=== PATIENT | female | born 1980 | race Hispanic/Latino ===

== ENCOUNTER 2017-11-02 00:44 | Emergency (ER) | payer OTHER ==
[2017-11-02 02:23] LABS: Urine Blood NEGATIVE (NEG); Urine Glucose NEGATIVE (NEG); Urine Protein NEGATIVE (NEG); Urine Specific Gravity 1.025 (1.005-1.030); Urine pH 6.5 (5.0-7.0)
[2017-11-02 02:42] LABS: Absolute Lymphocytes (CBC) 2.9 K/uL (0.7-4.9); Absolute Monocytes 0.9 K/uL (0.1-1.3); Absolute Neutrophil 7.4 K/uL (1.8-8.0); Basophils % 0.5 % (0-1.3); Eosinophils % 1.4 % (0-4.4); Hematocrit 36.2 % (36.0-45.0); Lymphocytes % 25.8 % (15.3-44.8); MCH 31.8 pg (27.0-35.0); MCV 94.1 fL (80-100); MPV 9.6 fL (7.6-11.3); Monocytes % 7.7 % (3.3-12.3); RBC Red Blood Cell Count 3.84 M/uL (3.86-4.86)
[2017-11-02 02:45] LABS: BUN Blood Urea Nitrogen 10 mg/dL (6-20); Bicarbonate 24 mEq/L (21-31); Glucose Level 90 mg/dL (65-120); Potassium 3.6 mEq/L (3.6-5.0); Sodium Level 136 mEq/L (135-145)
--- NOTE | 2017-11-02 03:12 | EDPHYS ---
Physician Documentation [facility] Name: Catrachita Fisher Age: 37 yrs Sex: Female : 1980 Arrival Date: 11/02/2017 Time: 00:55 Bed 20 Private MD: ED Physician Chaitanya Westbrook HPI: 11/02 01:59 This 37 yrs old Female presents to ER via Ambulatory with complaints of rn Vaginal Bleeding, + Preg <12wks. 01:59 The patient presents to the emergency department with vaginal bleeding, that is light, rn with no clots. The estimated gestational age is 9 weeks. course: care: none, Leakage of Fluid: none appreciated, Ultrasound: the patient has not had an ultrasound. Associated signs and symptoms: Pertinent negatives: abdominal pain, chest pain, diarrhea, dysuria, fever, ruptured membranes. The patient has experienced a previous episode. Reports 8th , has had 1 miscarriage, denies trauma, last sex a few days ago, reports spotting, mild cramps but no true abd pain, and cramps went away, no urinary symptoms. . 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 - Social history:: Smoking status: Patient/guardian denies using tobacco, Patient/guardian denies using alcohol, street drugs. - Family history:: not pertinent. - Hospitalizations: : No recent hospitalization is reported. ROS: 02:01 Constitutional: Negative for fever, chills, and weight loss, Eyes: Negative for injury, rn pain, redness, and discharge, Neck: Negative for injury, pain, and swelling, Cardiovascular: Negative for chest pain, palpitations, and edema, Respiratory: Negative for shortness of breath, cough, wheezing, and pleuritic chest pain, Abdomen/GI: Negative for abdominal pain, nausea, vomiting, diarrhea, and constipation, Back: Negative for injury and pain, : + vaginal spotting MS/Extremity: Negative for injury and deformity, Skin: Negative for injury, rash, and discoloration, Neuro: Negative for headache, weakness, numbness, tingling, and seizure. Exam: 02:01 Constitutional: This is a well developed, well nourished patient who is awake, alert, rn and in no acute distress. Head/Face: Normocephalic, atraumatic. Eyes: Pupils equal round and reactive to light, extra-ocular motions intact. Lids and lashes normal. Conjunctiva and sclera are non-icteric and not injected. Cornea within normal limits. Periorbital areas with no swelling, redness, or edema. Abdomen/GI: Soft, non-tender, with normal bowel sounds. No distension or tympany. No guarding or rebound. No evidence of tenderness throughout. Back: No spinal tenderness. No costovertebral tenderness. Full range of motion. Skin: Warm, dry with normal turgor. Normal color with no rashes, no lesions, and no evidence of cellulitis. MS/ Extremity: Pulses equal, no cyanosis. Neurovascular intact. Full, normal range of motion. Equal circumference. Neuro: Awake and alert, GCS 15, oriented to person, place, time, and situation. Cranial nerves II-XII grossly intact. Motor strength 5/5 in all extremities. Sensory grossly intact. Cerebellar exam normal. Normal gait. Vital Signs: 01:12 BP 112 / 75; Pulse 66; Resp 18; Temp 98.4; Pulse Ox 98% on R/A; Weight 58.97 kg (R); ao Height 5 ft. 1 in. (154.94 cm) (R); Pain 5/10; 02:17 BP 135 / 85; Pulse 71; Resp 20; Pulse Ox 97% ; Pain 6/10; ao 03:17 BP 124 / 71; Pulse 67; Resp 15; Pulse Ox 98% on R/A; Pain 0/10; bs1 01:12 Body Mass Index 24.56 (58.97 kg, 154.94 cm) ao Procedures: 02:31 Ultrasound: Type: OB, performed by the emergency department physician, Bedside rn transabdominal u/s performed at bedside, + single IUP, posterior placenta, good fluid, FHT 162, images shown to patient, efe [place] present. . MDM: 01:53 Patient medically screened. rn 03:10 Differential diagnosis: Differential diagnosis: ectopic . Data reviewed: vital rn signs, nurses notes. Data reviewed: lab test result(s), radiologic studies, ultrasound, and as a result, I will discharge patient. Counseling: I had a detailed discussion with the patient and/or guardian regarding: the historical points, exam findings, and any diagnostic results supporting the discharge/admit diagnosis, lab results, radiology results, the need for outpatient follow up, to return to the emergency department if symptoms worsen or persist or if there are any questions or concerns that arise at home. Special discussion: I discussed with the patient/guardian in detail that at this point there is no indication for admission to the hospital. It is understood, however, that if the symptoms persist or worsen the patient needs to return immediately for re-evaluation. Based on the history and exam findings, there is no indication for further emergent testing or inpatient evaluation. I discussed with the patient/guardian the need to see the OB Gyne specialist for further evaluation of the symptoms. ED course: +single IUP with normal FHT, RH+, will dc home with OB f/u. . 11/02 01:54 Order name: Quantitative Hcg; Complete Time: 03:19 rn 11/02 01:54 Order name: Abo/rh Typing; Complete Time: 03:09 rn 11/02 01:54 Order name: Basic Metabolic Panel; Complete Time: 03:19 rn 11/02 01:54 Order name: CBC with Diff; Complete Time: 03:09 rn 11/02 02:10 Order name: Urine Dipstick--Ancillary (enter results); Complete Time: 03:09 em1 11/02 02:10 Order name: Urine --Ancillary (enter results); Complete Time: 03:09 1 11/02 01:54 Order name: Urine Test (obtain specimen); Complete Time: 02:07 rn 11/02 01:54 Order name: IV Saline Lock; Complete Time: 02:35 rn 11/02 01:54 Order name: Labs collected and sent; Complete Time: 02:35 rn 11/02 01:54 Order name: NPO; Complete Time: 02:07 rn 11/02 01:54 Order name: Urine Dipstick-Ancillary (obtain specimen); Complete Time: 02:07 rn Administered Medications: No medications were administered Disposition: 11/02/17 03:11 Discharged to Home. Impression: Threatened . - Condition is Stable. - Discharge Instructions: Threatened Miscarriage. - Medication Reconciliation Form, Thank You Letter, Antibiotic Education, Prescription Opioid Use form. - Follow up: Private Physician; When: As needed; Reason: Recheck today's complaints, Re-evaluation by your physician. - Problem is new. - Symptoms have improved. Signatures: Dispatcher [employer] EDChaitanya Choe MD MD rn Ortiz, Trey, RN RN ao Carla Byrne RN RN bs1
--- NOTE | 2017-11-02 03:12 | ER ---
Nurse's Notes [facility] Name: Catrachita Fisher Age: 37 yrs Sex: Female : 1980 Arrival Date: 11/02/2017 Time: 00:55 Bed 20 Private MD: Diagnosis: Threatened Presentation: 11/02 01:08 Presenting complaint: Patient states: "I'm about 9 week and started having ao vaginal bleeding about an hour ago. I think it was more like spotting when I clean my self in the bathroom. I'm also having cramps.". Transition of care: patient was not received from another setting of care. Onset of symptoms was November 02, 2017 at 00:30. Care prior to arrival: None. 01:08 Method Of Arrival: Ambulatory ao 01:08 Acuity: DERRICK 3 ao Triage Assessment: 01:15 General: Appears in no apparent distress. comfortable, Behavior is calm, cooperative, ao appropriate for age. Pain: Complains of pain in abdomen Pain currently is 5 out of 10 on a pain scale. 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 - Social history:: Smoking status: Patient/guardian denies using tobacco, Patient/guardian denies using alcohol, street drugs. - Family history:: not pertinent. - Hospitalizations: : No recent hospitalization is reported. Screenin:06 Abuse screen: Denies threats or abuse. Denies injuries from another. Nutritional ao screening: No deficits noted. Tuberculosis screening: No symptoms or risk factors identified. Fall Risk None identified. Assessment: 02:04 General: Appears. General: Appears in no apparent distress. comfortable, Behavior is ao appropriate for age. Pain: Complains of pain in abdomen Pain currently is 6 out of 10 on a pain scale. Neuro: Level of Consciousness is awake, alert, obeys commands, Oriented to person, place, time, situation, Moves all extremities. Speech is normal, Facial symmetry appears normal. Cardiovascular: Heart tones Capillary refill < 3 seconds Patient's skin is warm and dry. Respiratory: Airway is patent Respiratory effort is even, unlabored, Respiratory pattern is regular, symmetrical. GI: Abdomen is distended, Parent/caregiver reports the patient having Abdominal cramping. : Reports vaginal bleeding that is spotty. EENT: No signs and/or symptoms were reported regarding the EENT system. Derm: No signs and/or symptoms reported regarding the dermatologic system. Musculoskeletal: No signs and/or symptoms reported regarding the musculoskeletal system. 03:00 Reassessment: Patient appears in no apparent distress at this time. Patient and/or bs1 family updated on plan of care and expected duration. Pain level reassessed. Patient is alert, oriented x 3, equal unlabored respirations, skin warm/dry/pink. Vital Signs: 01:12 BP 112 / 75; Pulse 66; Resp 18; Temp 98.4; Pulse Ox 98% on R/A; Weight 58.97 kg (R); ao Height 5 ft. 1 in. (154.94 cm) (R); Pain 5/10; 02:17 BP 135 / 85; Pulse 71; Resp 20; Pulse Ox 97% ; Pain 6/10; ao 03:17 BP 124 / 71; Pulse 67; Resp 15; Pulse Ox 98% on R/A; Pain 0/10; bs1 01:12 Body Mass Index 24.56 (58.97 kg, 154.94 cm) ao ED Course: 00:55 Patient arrived in ED. es 01:11 Triage completed. ao 01:15 Arm band placed on right wrist. Patient placed in waiting room, in a wheelchair, ao Patient notified of wait time. 01:53 Chaitanya Westbrook MD is Attending Physician. rn 02:04 Trey Chua RN is Primary Nurse. ao 02:06 Patient has correct armband on for positive identification. Pulse ox on. NIBP on. ao 02:15 Inserted saline lock: 20 gauge in right antecubital area, using aseptic technique. bp Blood collected. 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 bp 03:24 IV discontinued, bleeding controlled, No redness/swelling at site. Pressure dressing bs1 applied. Administered Medications: No medications were administered Outcome: 03:11 Discharge ordered by . rn 03:24 Discharged to home ambulatory. bs1 03:24 Condition: stable 03:24 Discharge instructions given to patient, Instructed on discharge instructions, follow up and referral plans. Demonstrated understanding of instructions, follow-up care. 03:26 Patient left the ED. bs1 Signatures: Belia Marrero Roman, MD MD rn Ortiz, Alex RN RN William Watts RN RN Carla Florian RN RN bs1
[2017-11-02 03:32] VITALS: TEMP 98.4
[2017-11-02 03:34] VITALS: BP 124/71; O2SAT 98
== END 2017-11-02 03:26 | disposition home or self-care (01) ==
LOC: ER 00:44
DX: O20.0 Threatened abortion (principal); Z3A.09 9 weeks gestation of pregnancy; Z88.3 Allergy status to other anti-infective agents
CPT/HCPCS: 36415; 80048; 81003; 81025; 84702; 85025; 86900; 86901; 99283

== ENCOUNTER 2018-05-31 13:00 | Inpatient (IN) | payer OTHER ==
[2018-05-31] MEDS ORDERED: METHYLERGONOVINE 0.2MG/ML AMP IM PRN ×2 (15:05→20:37)
[2018-05-31] MEDS ORDERED: PROMETHAZINE 25 MG/ML VIAL IM PRN (15:05)
[2018-05-31] MEDS ORDERED: MEPERIDINE HCL 25 MG/0.5 ML IV PRN (15:05)
[2018-05-31] MEDS ORDERED: CARBOPROST TROME 250 MCG/ML IM PRN ×2 (15:05→20:37)
[2018-05-31] MEDS ORDERED: Ringers Lactate 1,000 ML IV PRN (15:05)
[2018-05-31] MEDS ORDERED: BUTORPHANOL 1 MG/ML INJ IV PRN (15:05)
[2018-05-31 15:15] VITALS: BMI 27.3
[2018-05-31 15:37] LABS: RPR Titer ND
[2018-05-31 15:52] LABS: Absolute Lymphocytes (CBC) 1.7 K/uL (0.7-4.9); Absolute Monocytes 0.8 K/uL (0.1-1.3); Absolute Neutrophil 11.5 K/uL (1.8-8.0); Basophils % 0.2 % (0-1.3); Eosinophils % 0.4 % (0-4.4); Hematocrit 37.3 % (36.0-45.0); Lymphocytes % 12.2 % (15.3-44.8); MCH 31.7 pg (27.0-35.0); MCV 93.5 fL (80-100); Monocytes % 5.7 % (3.3-12.3); RBC Red Blood Cell Count 3.99 M/uL (3.86-4.86); Urine Appearance CLEAR; Urine Bilirubin NEGATIVE (NEG); Urine Blood NEGATIVE (NEG); Urine Color DK YELLOW; Urine Glucose NEGATIVE (NEG); Urine Protein TRACE (NEG); Urine Specific Gravity 1.025 (1.005-1.030)
[2018-05-31] MEDS ORDERED: PENICILLIN G POT 5 MU/100 ML BAG IV ONE (16:00)
[2018-05-31] MEDS ORDERED: OXYTOCIN/LR 20 UNIT/1,000 ML BAG IV SCH ×2 (16:00→21:00)
[2018-05-31] MEDS ORDERED: Ringers Lactate 1,000 ML IV SCH (16:00)
[2018-05-31 16:04] LABS: Urine Microscopic Reflex ORDER UMIC
[2018-05-31 16:36] LABS: Urine Bacteria <20 /HPF (<20); Urine Culture Reflex Order REFLEXED; Urine Mucus 2+ /HPF (NONE SEEN); Urine RBC <5 /HPF (NONE SEEN)
[2018-05-31] MEDS ORDERED: PENICILLIN 2.5 MU in NA CHLORIDE 0.9% 100 ML IV SCH (17:00)
[2018-05-31] MEDS ORDERED: ROPIVACAINE HCL 100 ML IV PRN (17:47)
[2018-05-31] MEDS ORDERED: ROPIVACAINE HCL 0.2% 20ML AMP IV SCH (18:00)
[2018-05-31] MEDS ORDERED: FENTANYL CITR 100 MCG/2 ML IV ONE (19:00)
[2018-05-31] MEDS ORDERED: ACETAMINOPHEN 500 MG TAB PO PRN (20:37)
[2018-05-31] MEDS ORDERED: MEASLES,MUMPS,RUBELLA VAC 0.5ML SUBQ ONE (20:37)
[2018-05-31] MEDS ORDERED: Oxycodone HCl/Acetaminophen 1 TAB TAB PO PRN (20:37)
[2018-05-31] MEDS ORDERED: IBUPROFEN 200 MG TAB PO PRN (20:37)
--- NOTE | 2018-05-31 21:34 | PN ---
Xavi regularly now. She is still 2.5, 50% effaced, vertex, well applied, -1 station. FHTs no rmal, reactive. Rupture of membranes, clear fluid. She has had her first dose of penicillin. She i s Rh positive. Nonimmune to Rubella. Positive beta strep screen. Full labor talk given. Once she gets into good active labor, we will be requesting epidural anesthesia, which we will probably call f or when she approaches 4 cm and the baby comes down a little bit lower. Full labor discussion. ANDREA/GEO Voice ID: [id number] Report ID: [id number]
[2018-05-31 22:21] LABS: RPR (Rapid Plasma Reagin) NON-REACT (NON-REACT)
--- NOTE | 2018-06-01 00:34 | PN ---
The patient is now 8 cm, 100% effaced, vertex, +1 station. She is maged regularly. She is com fortable with her epidural. We will increase the Pitocin and anticipate full dilation, and then we w ill begin pushing relatively soon. ANDREA/GEO Voice ID: [id number] Report ID: [id number]
--- NOTE | 2018-06-01 04:43 | OP ---
Surgeon: Devendra Riggins MD Hospital Course: A 38-year-old, 8, para 6, AB 1, 39 weeks 5 days, scheduled for induction to guerin. Came in in early labor. Penicillin prophylaxis x2 times during the labor. Rh positive. No nimmune to Rubella. This has been discussed and she will be immunized during her . Tdap an d flu shots have been offered. Rupture of membranes at 3 cm, clear fluid. Epidural anesthesia estab lished at 7 cm gave good results during remainder of labor and delivery. Second stage of 25 minutes approximately. Spontaneous vaginal delivery of an estimated 7 pounds male infant. Nuchal cord x1. Apgars 9 and 9. No episiotomy. No laceration. Schultze delivery of the placenta, inspected and not ed to be intact and normal. Less than 200 cc blood loss. Tolerated all procedures well. Final Diagnoses: Term intrauterine , 39 weeks 5 days. Epidural anesthesia. Penicillin pro phylaxis. Rubella immunization pending. Nuchal cord x1. JACKIEC/DARIUSL Voice ID: [id number] Report ID: [id number]
[2018-06-01] MEDS: Oxycodone HCl/Acetaminophen 1 TAB TAB PO PRN ×3 (05:31→21:25)
--- NOTE | 2018-06-01 09:52 | PREOPHP ---
Date of Admission: 05/31/2018 Hospital Course: A 28-year-old multiparous female, 8 at least 5 term pregnancies, scheduled for induction tomorrow. She is 39 weeks and 5 days. Today, history of beta strep positive rather, rh positive, immune to Rubella. Xavi every 2-9 minutes, home she but she states they are unco mfortable. She is a good 2-1/2 now, she is 1.5 in the office, 60% effaced, vertex, well applied at - 1 station. She expressed a desire to stay tonight. We will go ahead and start her IV, start penicil karo prophylaxis. Start Pitocin and deliver her sometime later this evening. Labor talk given. ANDREA/GEO Voice ID: [id number]
[2018-06-01] MEDS ORDERED: MEASLES,MUMPS,RUBELLA VAC 0.5ML SQVAC ONE (17:00)
[2018-06-01 22:54] VITALS: BP 115/72; TEMP 97.6
--- NOTE | 2018-06-02 04:11 | DS ---
Date of Discharge: 06/01/2018 Hospital Course: Catrachita Fisher is 38-year-old, 8, para 6, AB 1, 39 weeks 5 days, scheduled f or induction today, came in last night in labor. Subsequently, delivered uneventfully of a 7-pound-e stimated-weight male . Apgars 9 and 9. No episiotomy. No laceration. Dennis delivery of th e placenta, was inspected and noted to be intact and normal. Less than 200 cc blood loss. Epidural anesthesia. Penicillin prophylaxis x2 during the labor. Nuchal cord loosely x1. Rh positive. [place] mmune to Rubella. This has been discussed with the patient. She will get her rubella immunization b efore she leaves. She has had her Tdap immunization. Encouraged to get a flu shot. Full dismissal instructions given. To report any temperature elevation of 100 degrees or greater, severe pain, heav y bleeding, or any other type of abnormalities. To call my office and see me back in 6 weeks for fol lowup. Given tramadol for analgesia, although she knows this goes to the breast milk. She may elect to take Motrin instead. Has some mild back discomfort from the epidural, but otherwise is doing wel l. Lochia is normal. She will be dismissed later this afternoon or tomorrow morning. Final Diagnoses: Term intrauterine , 39 weeks 5 days, vaginal delivery, epidural anesthesia . Penicillin prophylaxis. Loose nuchal cord x1. Rubella immunization offered. ANDREA/GEO Voice ID: [id number] Report ID: [id number]
[2018-06-02 13:01] LABS: HBsAG Nonreactive (Nonreactive)
== END 2018-06-01 22:20 | disposition home or self-care (01) | DRG 807 ==
LOC: L&D 13:00 → 2ND-WC 14:58
PROVIDERS: ADMIT Specialist; ATTEND Specialist
PROC: 10907ZC Drainage of Amniotic Fluid, Therapeutic from Products of Conception, Via Natural or Artificial Opening (ICD-10-PCS; principal; 2018-05-31)
PROC: 10E0XZZ Delivery of Products of Conception, External Approach (ICD-10-PCS; 2018-05-31)
DX: O69.81X0 Labor and delivery complicated by cord around neck, without compression, not applicable or unspecified (principal); Z37.0 Single live birth; O99.824 Streptococcus B carrier state complicating childbirth; Z3A.39 39 weeks gestation of pregnancy; Z23 Encounter for immunization
CPT/HCPCS: 36415; 81003; 81015; 85025; 86592; 86901; 87086; 87088; 87340; 90707; 99218; J0595; J2175; J2210; J2550; J2590; J2795; J3010

== ENCOUNTER 2020-01-13 16:10 | Emergency (ER) | payer OTHER, SELFPAY ==
--- NOTE | 2020-01-13 19:00 | RAD REPORT ---
EXAM DESCRIPTION: RAD - Chest Single View - 01/13/2020 5:57 pm CLINICAL HISTORY: PAIN COMPARISON: Portable September 2016 TECHNIQUE: AP portable chest image was obtained 01/13/2020 5:57 pm . FINDINGS: Lungs are clear. Heart and vasculature are normal. No measurable pleural effusion and no p neumothorax. No acute bony abnormality seen. No acute aortic findings suspected. No significant thayer e from comparison. IMPRESSION: No acute cardiopulmonary process.
--- NOTE | 2020-01-13 19:00 | ER ---
Nurse's Notes [facility] Name: Catrachita Fisher Age: 39 yrs Sex: Female : 1980 Arrival Date: 01/13/2020 Time: 16:12 Bed 13 Private MD: Diagnosis: Strain of muscle, fascia and tendon at neck level-left;Strain of muscle and tendon of back wall of thorax-left;Pain in left shoulder Presentation: 01/12 16:46 Chief complaint: Patient states: left shoulder pain X 3 weeks, does not remember iw injuring it, also has neck pain on left side radiating from shoulder blade, feels like pulling into her left fingers. Coronavirus screen: Proceed with normal triage. Patient denies a cough. Patient denies shortness of breath or difficulty breathing. Patient denies measured and/or subjective temperature greater than 100.4F prior to today's visit. Patient denies travel on a cruise ship or to a country the [facility] currently lists as an affected area. Patient denies contact with known and/or suspected case of COVID-19. Ebola Screen: Patient negative for fever greater than or equal to 101.5 degrees Fahrenheit, and additional compatible Ebola Virus Disease symptoms Patient denies exposure to infectious person. Patient denies travel to an Ebola-affected area in the 21 days before illness onset. No symptoms or risks identified at this time. Initial Sepsis Screen: Does the patient meet any 2 criteria? No. Patient's initial sepsis screen is negative. Does the patient have a suspected source of infection? No. Patient's initial sepsis screen is negative. Risk Assessment: Do you want to hurt yourself or someone else? Patient reports no desire to harm self or others. Onset of symptoms was December 24, 2019. 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 - Social history:: Smoking status: Patient denies any tobacco usage or history of. Screenin:36 Abuse screen: Denies threats or abuse. Denies injuries from another. Nutritional ls4 screening: No deficits noted. Tuberculosis screening: No symptoms or risk factors identified. Fall Risk None identified. Vital Signs: 16:46 BP 119 / 77; Pulse 69; Resp 16; Temp 97.9; Pulse Ox 96% on R/A; Weight 61.23 kg; Height 5 ft. 1 in. (154.94 cm); Pain 8/10; 18:04 BP 125 / 84; Pulse 83; Resp 18; Temp 98.1; Pulse Ox 96% on R/A; Weight 61.23 kg; Height 4 5 ft. 1 in. (154.94 cm); 18:04 Body Mass Index 25.51 (61.23 kg, 154.94 cm) 4 ED Course: 16:12 Patient arrived in ED. as 16:48 Triage completed. iw 16:48 Arm band placed on. iw 17:18 Mitchell Wakefield PA is PHCP. cp 17:18 Mitchell Patel MD is Attending Physician. cp 17:35 Angeli Marcano, RN is Primary Nurse. ls4 17:36 Patient has correct armband on for positive identification. Bed in low position. Call ls4 light in reach. Side rails up X 1. Pulse ox on. NIBP on. Verbal reassurance given. 17:36 No provider procedures requiring assistance completed. ls4 17:57 XRAY Shoulder LEFT 2 view In Process Unspecified. EDMS 17:57 XRAY Chest (1 view) In Process Unspecified. EDMS Administered Medications: 18:36 Drug: TORadol 30 mg Route: IM; Site: left deltoid; ls4 Outcome: 18:59 Discharge ordered by . cp 19:46 Patient left the ED. ls4 Signatures: Dispatcher [employer] EDMS Daniela Grimaldo Irene, RN RN Mitchell Wakefield PA PA Angeli Persaud, RN RN 4 [facility]
--- NOTE | 2020-01-13 19:01 | EDPHYS ---
Physician Documentation [facility] Name: Catrachita Fisher Age: 39 yrs Sex: Female : 1980 Arrival Date: 01/13/2020 Time: 16:12 Bed 13 Private MD: PAT Physician Mitchell Patel HPI: 01/12 17:55 This 39 yrs old Female presents to ER via Ambulatory with complaints of cp Shoulder Pain, Neck Pain, <24hrs Old. 17:55 The patient or guardian complains of pain, that is acute. left shoulder. Context: cp resulted from an unknown reason, The patient reports no decreased range of motion. The patient reports no obvious deformity. Onset: The symptoms/episode began/occurred 3 week(s) ago. Modifying factors: The symptoms are aggravated by lifting weight, movement. Associated signs and symptoms: Pertinent positives: neck pain, left upper back pain, Pertinent negatives: chest pain, Numbness in left arm. 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 - Social history:: Smoking status: Patient denies any tobacco usage or history of. ROS: 18:00 Constitutional: Negative for fever, poor PO intake. cp 18:00 Cardiovascular: Negative for chest pain, palpitations. cp 18:00 Respiratory: Negative for cough, shortness of breath, wheezing. 18:00 Abdomen/GI: Negative for abdominal pain, nausea, vomiting, and diarrhea. 18:00 Back: Positive for pain at rest, pain with movement, of the left trapezius, left cp scapular area and left subscapular area. 18:00 MS/extremity: Positive for pain, tenderness, of the left shoulder. cp 18:00 Skin: Negative for rash. 18:00 Neuro: Negative for headache, numbness, tingling, weakness. 18:00 All other systems are negative. Exam: 18:10 Constitutional: The patient appears in no acute distress, alert, awake, non-toxic, well cp developed, well nourished. 18:10 Head/Face: Normocephalic, atraumatic. cp 18:10 Neck: External neck: tenderness, that is mild, of the left mid cervical area, left trapezius and left side of neck, ROM/movement: pain, that is mild, with any movement, limited range of motion, is not appreciated, nuchal rigidity, is not appreciated. 18:10 Chest/axilla: Inspection: normal, Palpation: is normal, no crepitus, no tenderness. 18:10 Cardiovascular: Rate: normal, Rhythm: regular, Heart sounds: murmur, not appreciated. 18:10 Respiratory: the patient does not display signs of respiratory distress, Respirations: normal, no use of accessory muscles, no retractions, labored breathing, is not present, Breath sounds: are clear throughout, no decreased breath sounds, no stridor, no wheezing. 18:10 Back: pain, that is mild, of the left trapezius and left scapular area, ROM is painful, with all movement. 18:10 Musculoskeletal/extremity: Extremities: grossly normal except: noted in the left shoulder: pain, tenderness, There is no evidence of decreased ROM, deformity, ROM: limited passive range of motion due to pain, in the left shoulder, Pulses: noted to be 2+ in the right radial artery and left radial artery, Sensation intact. 18:10 Neuro: Orientation: to person, place \T\ time. Mentation: is normal, Motor: moves all fours, strength is normal, Sensation: no obvious gross deficits. Vital Signs: 16:46 BP 119 / 77; Pulse 69; Resp 16; Temp 97.9; Pulse Ox 96% on R/A; Weight 61.23 kg; Height iw 5 ft. 1 in. (154.94 cm); Pain 8/10; 18:04 BP 125 / 84; Pulse 83; Resp 18; Temp 98.1; Pulse Ox 96% on R/A; Weight 61.23 kg; Height dh4 5 ft. 1 in. (154.94 cm); 18:04 Body Mass Index 25.51 (61.23 kg, 154.94 cm) dh4 MDM: 17:19 Patient medically screened. ignacio 18:00 Differential diagnosis: tendonitis, strain, muscle spasm. cp 18:33 ED course: xrays of left shoulder negative for acute findings and chest xray negative cp for acute findings. 18:55 Data reviewed: vital signs, nurses notes, radiologic studies, plain films, and as a cp result, I will discharge patient. 18:55 Test interpretation: by ED physician or midlevel provider: plain radiologic studies. cp 18:58 Response to treatment: the patient's symptoms have mildly improved after treatment, and cp as a result, I will discharge patient. 18:58 Counseling: I had a detailed discussion with the patient and/or guardian regarding: the cp historical points, exam findings, and any diagnostic results supporting the discharge/admit diagnosis, radiology results, the need for outpatient follow up, a family practitioner. 01/12 17:37 Order name: XRAY Shoulder LEFT 2 view; Complete Time: 19:18 cp 01/12 19:18 Interpretation: Report reviewed. 01/12 17:37 Order name: XRAY Chest (1 view); Complete Time: 19:18 cp 01/12 19:18 Interpretation: Report review. 01/12 17:37 Order name: Urine Dipstick-Ancillary (obtain specimen); Complete Time: 18:35 01/12 17:37 Order name: Urine Test (obtain specimen); Complete Time: 18:35 cp Administered Medications: 18:36 Drug: TORadol 30 mg Route: IM; Site: left deltoid; ls4 Disposition: 18:30 Chart complete. 01/13 11:31 Co-signature as Attending Physician, Mitchell Patel MD I agree with the assessment and ignacio plan of care. Disposition: 01/13/20 18:59 Discharged to Home. Impression: Strain of muscle, fascia and tendon at neck level - left, Strain of muscle and tendon of back wall of thorax - left, Pain in left shoulder. - Condition is Stable. - Discharge Instructions: Muscle Strain, Shoulder Pain, Shoulder Range of Motion Exercises, Neck Exercises. - Prescriptions for Lidoderm 5 % Topical adhesive patch,medicated - apply 1 patch by TRANSDERMAL route once daily As needed; 1 box. Ibuprofen 800 mg Oral Tablet - take 1 tablet by ORAL route every 8 hours As needed take with food; 30 tablet. Cyclobenzaprine 10 mg Oral Tablet - take 1 tablet by ORAL route every 8 hours As needed; 20 tablet. - Medication Reconciliation Form, Thank You Letter, Antibiotic Education, Prescription Opioid Use form. - Follow up: Private Physician; When: 2 - 3 days; Reason: Recheck today's complaints. - Problem is new. - Symptoms have improved. Signatures: Dispatcher [employer] EDMitchell Miranda MD MD cha Williams, Irene, RN RN Mitchell Cota PA PA cp Stewart, Lisa, RN RN ls4 Corrections: (The following items were deleted from the chart) 01/12 19:01 18:59 01/13/2020 18:59 Discharged to Home. Impression: Strain of muscle, fascia and cp tendon at neck level - left; Strain of muscle and tendon of back wall of thorax - left. Condition is Stable. Forms are Medication Reconciliation Form, Thank You Letter, Antibiotic Education, Prescription Opioid Use. Follow up: Private Physician; When: 2 - 3 days; Reason: Recheck today's complaints. Problem is new. Symptoms have improved. cp 19:46 19:01 01/13/2020 18:59 Discharged to Home. Impression: Strain of muscle, fascia and ls4 tendon at neck level - left; Strain of muscle and tendon of back wall of thorax - left; Pain in left shoulder. Condition is Stable. Discharge Instructions: Muscle Strain, Neck Exercises. Prescriptions for Lidoderm 5 % Topical adhesive patch,medicated - apply 1 patch by TRANSDERMAL route once daily As needed; 1 box, Ibuprofen 800 mg Oral Tablet - take 1 tablet by ORAL route every 8 hours As needed take with food; 30 tablet, Cyclobenzaprine 10 mg Oral Tablet - take 1 tablet by ORAL route every 8 hours As needed; 20 tablet. and Forms are Medication Reconciliation Form, Thank You Letter, Antibiotic Education, Prescription Opioid Use. Follow up: Private Physician; When: 2 - 3 days; Reason: Recheck today's complaints. Problem is new. Symptoms have improved. cp
--- NOTE | 2020-01-13 19:01 | RAD REPORT ---
EXAM DESCRIPTION: RAD - Shoulder Left 2 View - 01/13/2020 5:57 pm CLINICAL HISTORY: PAIN COMPARISON: No comparisons TECHNIQUE: Internal and external rotation views of the left shoulder were obtained. FINDINGS: There is no fracture or dislocation. AC joint is normal in appearance. No acute or suspici ous findings. IMPRESSION: Negative two-view left shoulder examination for acute findings.
[2020-01-13] MEDS ORDERED: KETOROLAC 30 MG/ML INJ ONE (19:09)
[2020-01-13 19:52] VITALS: O2SAT 96
[2020-01-13 19:54] VITALS: BP 125/84; TEMP 98.1
== END 2020-01-13 19:46 | disposition home or self-care (01) ==
LOC: ER 16:10
DX: S16.1XXA Strain of muscle, fascia and tendon at neck level, initial encounter (principal); S29.012A Strain of muscle and tendon of back wall of thorax, initial encounter; Z88.1 Allergy status to other antibiotic agents
CPT/HCPCS: 71045; 96372; 99283

== ENCOUNTER 2022-02-11 07:21 | Inpatient (IN) | payer OTHER ==
[2022-02-11] MEDS ORDERED: BUTORPHANOL 1 MG/ML INJ IV PRN (07:33)
[2022-02-11] MEDS ORDERED: METHYLERGONOVINE 0.2MG/ML AMP IM PRN (07:33)
[2022-02-11] MEDS ORDERED: CARBOPROST TROME 250 MCG/ML IM PRN (07:33)
[2022-02-11] MEDS ORDERED: Ringers Lactate 1,000 ML IV PRN (07:33)
[2022-02-11] MEDS ORDERED: PROMETHAZINE INJ 25 MG/ML AMP IV PRN (07:33)
[2022-02-11] MEDS ORDERED: LIDOCAINE 1% MPF 30 ML VIAL SQ ONE (07:37)
[2022-02-11] MEDS ORDERED: Ringers Lactate 1,000 ML IV SCH (08:00)
[2022-02-11] MEDS ORDERED: OXYTOCIN/LR 20 UNIT/1,000 ML BAG IV SCH ×2 (08:00→14:00)
[2022-02-11 08:50] LABS: Absolute Lymphocytes (CBC) 1.6 K/uL (0.7-4.9); Hematocrit 36.8 % (36.0-45.0); Lymphocytes % 14.4 % (15.3-44.8)
[2022-02-11 08:56] LABS: Urine Appearance Clear (Clear); Urine Bilirubin Negative (Negative); Urine Blood 1+ (Negative); Urine Color Yellow (Yellow); Urine Glucose Negative (Negative); Urine Protein Trace (Negative); Urine Specific Gravity 1.025 (1.005-1.030); Urine Urobilinogen 0.2 mg/dL (0.2-1.0); Urine pH 6.5 (5.0-7.0)
[2022-02-11 09:05] LABS: Urine Bacteria 20-50 /HPF (<20); Urine Mucus LIGHT /HPF (NONE SEEN)
[2022-02-11] MEDS ORDERED: ROPIVACAINE HCL 0.2% 20ML AMP EP PRN ×2 (09:15→09:17)
[2022-02-11] MEDS ORDERED: FENTANYL CITR 100 MCG/2 ML IV ONE (09:16)
--- NOTE | 2022-02-11 09:17 | PREOPHP ---
Date of Admission: 02/11/2022 History Of Present Illness: Catrachita Fisher is a 42-year-old, 9, para 7, at 38 weeks 1 day, no moises to be diabetic during the plus advanced maternal age. Because of the diabetes and adva nced maternal age, inferior delivery outside the hospital because of grand multiparity, we decided to proceed with induction at 38 weeks and 1 day. Family History: Mother and father with hypertension, mother with diabetes. Past Medical History: No serious medical illnesses. Past Surgical History: The patient has had no previous surgeries. Allergies: SHE IS ALLERGIC TO ZITHROMAX. Medications: Has been taking vitamins. Social History: Does not smoke. Physical Examination: HEENT: Clear. Pupils equal, round, reactive to light and accommodation. Conjunctivae well perfused . No oral, lingual, buccal lesions. Chest and Lungs: Clear. Heart: Without murmurs, thrills, heaves, or rubs. Breasts: Without masses on previous visits. Abdomen: Term size. Assessment And Plan: Baby is vertex, 3 cm, 50% effaced, -1 station, rupture of membranes clear fluid . She is Rh positive, immune to Rubella. Negative strep. COVID status pending. Anticipate delivery sometime later today. ANDREA/GEO Voice ID: [id number]
[2022-02-11] MEDS ORDERED: ROPIVACAINE HCL 100 ML EP ONE (09:50)
[2022-02-11 10:47] VITALS: BMI 28.3
[2022-02-11] MEDS ORDERED: BISACODYL 10 MG RECTAL SUPP PR PRN (13:46)
[2022-02-11] MEDS ORDERED: Oxycodone HCl/Acetaminophen 1 TAB TAB PO PRN ×2 (13:46)
[2022-02-11] MEDS ORDERED: ACETAMINOPHEN 500 MG TAB PO PRN (13:46)
[2022-02-11] MEDS ORDERED: DIPHENHYDRAMINE 25 MG TAB/CAP PO PRN (13:46)
[2022-02-11] MEDS ORDERED: DOCUSATE NA/SENNA CONC 1 TAB PO PRN (13:46)
[2022-02-11] MEDS ORDERED: IBUPROFEN 600 MG TAB PO PRN (13:55)
--- NOTE | 2022-02-11 15:29 | PN ---
The patient is about 3.5. She got an epidural. Her left leg is so numb that she cannot really move it. Baby looks good. We need to continue to increase Pitocin. I do not think she is in really good labor at this point. Full discussion. ANDREA/GEO Voice ID: [id number] Report ID: [id number]
--- NOTE | 2022-02-11 15:31 | OP ---
Surgeon: Devendra Riggins MD Procedure In Detail: A 42-year-old, 9, para 7, at 38 weeks 1 day, followed antepartum, noted to be diabetic. It was decided proceed with induction of labor at this point because of diabetes an d advanced maternal age [age] years old and favorable cervix. The cervix was 2.5 to 3 cm this morning, rupture of membranes, clear fluid. The patient requested and received at approximately 3.5 to 4 cm e pidural anesthesia, which really numbed her up to the point where she was barely able to feel the con tractions, but she went to complete second stage of about 25 minutes, possibly 30. Spontaneous vagin al delivery of an estimated 7-pound plus male , Apgars 9 and 9. No episiotomy. No laceration. Schultze delivery of the placenta, which was inspected and noted be intact and normal. Less than 2 00 cc blood loss. The patient tolerated all procedures well. Rh positive, immune to rubella, negati ve strep, negative COVID. Final Diagnoses: Intrauterine at 38 weeks 1 day, diabetes, advanced maternal age, favorabl e cervix. NBC/MODL Voice ID: [id number] Report ID: [id number]
[2022-02-11] MEDS ORDERED: GLUCAGON 1 MG/VIAL IM PRN (18:54)
[2022-02-11] MEDS ORDERED: INSULIN -REGULAR HUMAN 50 UNIT/0.5 ML ML SQ ONE ×3 (19:00→19:30)
[2022-02-11] MEDS ORDERED: D10W 250 ML BAG IV PRN (19:00)
[2022-02-11] MEDS: INSULIN -REGULAR HUMAN 50 UNIT/0.5 ML ML SQ SCH (21:00)
[2022-02-12] MEDS ORDERED: Ringers Lactate 1,000 ML IV ONE (04:51)
[2022-02-12] MEDS: INSULIN -REGULAR HUMAN 50 UNIT/0.5 ML ML SQ SCH (07:30)
--- NOTE | 2022-02-12 07:38 | DS ---
Date of Discharge: 02/12/2022 Hospital Course: A 42-year-old, 9, para 7, noted to be diabetic during the . Karoline ered at 38 weeks 1 day of a 6-pound 15-ounce male infant, Apgars 9 and 9. No episiotomy. No lacerat ion. Schultze delivery of the placenta. Minimal blood loss, less than 200 cc. Rh positive, immune to rubella, negative COVID, negative strep. ; afebrile, ambulating, voiding. Lochia is no rmal. After delivery, blood sugar spiked to low over 200. She was given 5 units of subcu insulin re gular and blood sugars went to 90. We will check again this morning. She will check herself at home . She was on metformin prior to getting . Full dismissal instructions given. No post epidu ral problems. Requests no analgesics. Final Diagnoses: Intrauterine gestation, advanced maternal age [age] years old at the time of delivery. Maternal diabetes, labor induction, vaginal delivery. Tdap has been administered during the pregna ncy. ANDREA/GEO Voice ID: [id number] Report ID: [id number]
[2022-02-12 10:03] VITALS: BP 125/81; TEMP 98.2
[2022-02-12 21:27] LABS: RPR (Rapid Plasma Reagin) NON-REACT (NON-REACT)
[2022-02-17 19:49] LABS: HBsAG Nonreactive (Nonreactive)
--- OUTSIDE RECORDS SUMMARY | 2022-02-18 04:32 | XMS REPORT | Continuity of Care Document ---
:1980 Author Organization [facility] t Address [address] [place] [address] Care Team Providers Name Role Phone PCP, PATIENT DOES NOT HAVE A Primary Care Physician Unavaila Georgia Mejia Attending Clinician Unavailable Georgia More Attending Clinician Georgia ROBERTS Admitting Clinician Unavailable Payers Payer Name Policy Type Policy Number Effective Date Expiration Date S ource [place] [id number] 2021 00:00:00 Problems Condition Condition Condition Status Onset Resolution Last Treating Co mments Source Name Details Category Date Date Treatment Clinician Date AMA AMA Disease Active Univers (advanced (advanced 4-26 ity of maternal maternal 00:00: [place] age) age) 00 Medical multigravi multigravi Br anch da 35+, da 35+, first first trimester trimester Maternal Maternal Disease Active Unive rs rheumatoid rheumatoid 4-26 it y of arthritis arthritis 00:00[place] complic[place] complicati 00 Me dical ng ng Branch HRP (high HRP (high Disease Active Uni vers risk risk 4-26 ity of ) [place] unspecifie unspecifie Br anch d d trimester trimester H/O H/O Disease Active Univers 4-26 [place] of delivery, [place], [place] 00 [place] sam[place] , , Bran ch unspecifie unspecifie d d trimester trimester [place] Disease Active Univers multiparit multiparit 4-26 it y of y, y, 00:00: [place] antepartum antepartum 00 Me dical Branch Rubella Rubella Disease Active Univers non-immune non-immune 3 it y of status, status, 00:00: [place] antepartum antepartum 00 Me dical Branch History of History of Disease Active U nivers 3-06 ity of delivery, delivery, [place] 00 [facility] Branch Supervisio Supervisio Disease Active U nivers n of n of 3 it[place] of high-risk high-risk 00:[place] [facility] of elderly of elderly Br anch multigravi multigravi da da H/O H/O Disease Active Univers rheumatoid rheumatoid 10-04 it y of arthritis arthritis [place] Allergies, Adverse Reactions, Alerts Allergy Allergy Status Severity Reaction(s) Onset Inactive Treating Comm ents Source Name Type Date Date Clinician Jarod Propensi Active Rash Univer s ycin ty to 02-28 ity of adverse 00:00: [place] reaction 00 Medical s Branch AZITHROM DRUG Active Rash Univers YCIN INGREDI 02-28 ity of 00:00: [place] 00 Medical Branch Social History Social Habit Start Date Stop Date Quantity Comments Source Exposure to Not sure [facility] SARS-CoV-2 [facility] (event) Branch Alcohol intake 2021-07-30 2021-07-30 Current University of 00:00:00 00:00:00 non-drinker of [facility] alcohol Branch (finding) Tobacco use and 2017-10-04 2017-10-04 Never used Universit y of exposure 00:00:00 00:00:00 [facility] Tobacco Comment 2017-10-04 2017-10-04 states she was a Uni versity of 00:00:00 00:00:00 light smoker; [place] [facility] not daily Branch History of 2017-09-29 Smoker University of tobacco use 00:00:00 [facility] Sex Ass[birth year] At [birth year] Universit y of 00:00:00 00:00:00 [facility] Smoking Status Start Date Stop Date Source Former smoker 2017-10-04 00:00:00 2017-10-04 00:00:00 [facility] Medications Ordered Filled Start Stop Current Ordering Indication Dosage Frequency Signature Comments Components Source Medication Medication Date Date Medication? Clinician (SIG) Name Name NaCl 0.9% 2020-08- No 1000mL at 999 Uni vers (NS) bolus 12-31 mL/hr, ity of infusion 01:30: 03:35 1,000 mL, Jose as 1,000 mL 00 :00 IV Medical Infusion, Branch ONCE, 1 dose, On Usha 07/30/21 at 1930, PATSY cephALEXin 2020-08- No [id number] 500mg Take 1 Univers (KEFLEX) 2-30 -07 capsule by ity of 500 mg 00:00: 05:59 mouth 2 [place] capsule 00 :00 (two) Medical times [place] daily for 7 days. Yes [id number] 1{packe Take 1 Univers vit 4-26 t} Packet by ity of 33-iron-fol 00:00: mouth [place] ic-dha 00 daily. Medical (SELECT-OB Branch + DHA) 29 mg iron-1 mg -250 mg combo pack Immunizations Ordered Filled Immunization Date Status Comments Sour e Immunization Name Name Influenza Virus 2017-10-04 Completed [facility] y of Vaccine Quad IM 3+ 00:00:[address] [facility] TDAP 2015-02-28 Completed [facility] 00:00:00 [facility] Vital Signs Vital Name Observation Time Observation Value Comments Source Systolic blood 2021-07-31 03:00:00 114 mm[Hg] Univer sity pressure [facility] Diastolic blood 2021-07-31 03:00:00 79 mm[Hg] [facility] Heart rate 2021-07-31 03:00:00 92 /min [facility] Respiratory rate 2021-07-31 03:00:00 22 /min [facility] Oxygen saturation in 2021-07-31 03:00:00 96 /min [facility] Arterial blood by [facility] Pulse oximetry Branch Body temperature 2021-07-31 00:09:00 37.5 [facility] Body weight 2021-07-31 00:09:00 56.7 kg [facility] BMI 2021-07-31 00:09:00 23.62 kg/m2 [facility] Procedures Procedure Date / Time Performed Performing Clinician Lucrecia e TROPONIN I 2021-07-31 02:18:00 Christian Roberts [facility] COMP. METABOLIC PANEL 2021-07-31 02:18:00 Christian Roberts [facility] ([id number]) [facility] CBC WITH DIFF 2021-07-31 02:18:00 Christian Roberts [facility] URINALYSIS 2021-07-31 02:18:00 Christian Roberts [facility] RAPID INFLUENZA A/B 2021-07-31 02:18:00 Christian Roberts [facility] COVID-19 (ID NOW RAPID 2021-07-31 02:18:00 Christian Roberts [facility] TESTING) [facility] POCT TEST 2021-07-31 02:17:00 Christian Roberts [facility] XR CHEST 1 VW 2021-07-31 00:41:52 Christian Roberts [facility] CONSENT/REFUSAL FOR 2021-07-31 00:00:50 Doctor Unassigned, No [facility] DIAGNOSIS AND Name [facility] TREATMENT NOTICE OF PRIVACY 2021-07-31 00:00:30 Doctor Unassigned, No [facility] PRACTICES Name [facility] Encounters Start End Encounter Admission Attending Care Care Encounter Source Date/Time Date/Time Type Type Clinicians Facility Department ID 2021-07-30 2021-07-30 Emergency X ARMANDO [facility] ERT [id number] Univers 18:13:00 21:50:00 [facility] 2021-07-30 2021-07-30 Emergency Armando [facility] [id number] Univers 18:13:00 21:50:00 [place] [id number] i [facility] [id number] [facility] [id number] [place] [id number] Branch Results Test Description Test Time Test Comments Results Result Comments Source TROPONIN I 2021-07-31 02:53:43 Test Item Value Reference Range Interpretation Comme nts TROPONIN I (test code = 0.001 ng/mL See_Comment [Au tomated message] The [id number]) system which ge nerated this result tra nsmitted reference range : <=0.034. The reference r maria m was not used to int erpret this result as normal/abnormal . BLAZE (test code = BLAZE) Reference (Normal) Range (defined by the 99th percentile reference limit): <= 0.034 ng/mL Note: Cardiac troponin begins to rise 3-4 hours after the onset of ischemia. Repeat in 4-6 hours if the sample was drawn within 3-4 hours of the onset of the symptom and found normal. Diagnosis of myocardial injury is made with acute changes in cTn concentrations with at least one serial sample above the 99th percentile upper reference limit (URL), taken together with the patient's clinical presentation. Biotin has been reported to cause a negative bias, interpret results relative to patient's use of biotin. Lab Interpretation Normal (test code = 96758-0) [facility]. METABOLIC PANEL (03753)2021-07-31 02:42:25 Test Item Value Reference Range Interpretation Comments NA (test code = 134 mmol/L 135-145 L [id number]) K (test code = 3.9 mmol/L 3.5-5.0 4218725229) CL (test code = 102 mmol/L 98-108 3611211964) CO2 TOTAL (test code = 23 mmol/L 23-31 0241125907) AGAP (test code = 2-16 5082311753) BUN (test code = 7 mg/dL 7-23 2615923754) GLUCOSE (test code = 88 mg/dL 70-110 7043903999) CREATININE (test code = 0.52 mg/dL 0.50-1.04 4492965408) TOTAL BILI (test code = 0.7 mg/dL 0.1-1.1 3514995036) CALCIUM (test code = 9.0 mg/dL 8.6-10.6 3542709431) T PROTEIN (test code = 8.1 g/dL 6.3-8.2 5893322829) ALBUMIN (test code = 4.4 g/dL 3.5-5.0 5307771543) ALK PHOS (test code = 63 U/L 34-122 8467401748) ALTv (test code = 86 U/L 5-35 H 1742-6) AST(SGOT) (test code = 78 U/L 13-40 H 4488151323) eGFR (test code = mL/min/1.73m2 5116296133) BLAZE (test code = BLAZE) Association of Glomerular Filtration Rate (GFR) and Staging of Kidney Disease* + --+ --+ ------+| GFR (mL/min/1.73 m2) ?| With Kidney Damage ?| ?Without Kidney Damage+ --------+ --------+ +| ?>90 ?| ?Stage one ?| ? Normal ?+ ---+ ---+ -------+| ?60-89 ?| ?Stage two ?| ? Decreased GFR ? + --+ --+ ------+| ?30-59 ?| ?Stage three ?| ? Stage three ? + --+ --+ ------+| ?15-29 ?| ?Stage four ? | ? Stage four ?+ ---+ ---+ -------+| ?<15 (or dialysis) ? ?| ?Stage five ? | ? Stage five ?+ ---+ ---+ -------+ *Each stage assumes the associated GFR level has been in effect for at least three months. ?Stages 1 to 5, with or without kidney disease, indicate chronic kidney disease. Notes: Determination of stages one and two (with eGFR >59mL/min/1.73 m2) requires estimation of kidney damage for at least three months as defined by structural or functional abnormalities of the kidney, manifested by either:Pathological abnormalities or Markers of kidney damage (including abnormalities in the composition of the blood or urine or abnormalities in imaging tests). Lab Interpretation Abnormal (test code = 70508-3) [facility] [id number] 02:31:39 Test Item Value Reference Range Interpretation Comments WBC (test code = See_Comment [Automated 1675-2) message] The sy stem which generated this result transmitted reference range : 4.30 - 11.10 10*3/?L. The reference range was not used to interpret this result as normal/abnormal . RBC (test code = See_Comment [Automated 088-8) message] The sy stem which generated this result transmitted reference range : 3.93 - 5.25 10*6/?L. The reference range was not used to interpret this result as normal/abnormal . HGB (test code = 13.7 g/dL 11.6-15.0 718-7) HCT (test code = 39.9 % 35.7-45.2 4544-3) MCV (test code = 92.4 fL 80.6-95.5 787-2) MCH (test code = 31.7 pg 25.9-32.8 785-6) MCHC (test code = 34.3 g/dL 31.6-35.1 786-4) RDW-SD (test code = 43.9 fL 39.0-49.9 31288-8) RDW-CV (test code = 12.9 % 12.0-15.5 788-0) PLT (test code = See_Comment [Automated 777-3) message] The sy stem which generated this result transmitted reference range : 166 - 358 10*3/ ?L. The reference r maria m was not used to interpret this result as normal/abnormal . MPV (test code = 11.4 fL 9.5-12.9 74089-2) NRBC/100 WBC (test See_Comment [Automat ed code = 3446859972) message] The system which generated this result transmitted reference range : 0.0 - 10.0 /100 WBCs. The refer ence range was not u sed to interpret th is result as normal/abnormal . NRBC x10^3 (test code <0.01 See_Comment [Auto mated = [id number]) message] The s ystem which generated this result transmitted reference range : 10*3/?L. The reference range was not used to interpret this result as normal/abnormal . GRAN MAT (NEUT) % 75.1 % (test code = 770-8) IMM GRAN % (test code 0.50 % = 9036828954) LYMPH % (test code = 12.7 % 736-9) MONO % (test code = 10.7 % 5905-5) EOS % (test code = 0.8 % 713-8) BASO % (test code = 0.2 % 706-2) GRAN MAT x10^3(ANC) 7.52 10*3/uL 1.88-7.09 H (test code = 4877104420) IMM GRAN x10^3 (test 0.05 10*3/uL 0.00-0.06 code = 9255296292) LYMPH x10^3 (test code 1.27 10*3/uL 1.32-3.29 L = 731-0) MONO x10^3 (test code 1.07 10*3/uL 0.33-0.92 H = 742-7) EOS x10^3 (test code = 0.08 10*3/uL 0.03-0.39 711-2) BASO x10^3 (test code <0.03 0.01-0.07 = 704-7) Lab Interpretation Abnormal (test code = 15957-8) [id number] 02:17:00 Test Item Value Reference Range Interpretation Comments POCT PREG (test code = 1605) positive On board controls acceptable with C present Line (test code = 3574) Lab Interpretation (test code = Normal 23137-7) [facility]"
== END 2022-02-12 15:40 | disposition home or self-care (01) | DRG 807 ==
LOC: 2ND-WC 07:21
PROVIDERS: ADMIT Specialist; ATTEND Specialist
PROC: 10907ZC Drainage of Amniotic Fluid, Therapeutic from Products of Conception, Via Natural or Artificial Opening (ICD-10-PCS; principal; 2022-02-11)
PROC: 10E0XZZ Delivery of Products of Conception, External Approach (ICD-10-PCS; 2022-02-11)
DX: O24.429 Gestational diabetes mellitus in childbirth, unspecified control (principal); Z37.0 Single live birth; O09.523 Supervision of elderly multigravida, third trimester; Z3A.38 38 weeks gestation of pregnancy; Z88.3 Allergy status to other anti-infective agents; Z20.822 Contact with and (suspected) exposure to COVID-19
CPT/HCPCS: 36415; 76819; 81003; 81015; 82947; 85025; 86592; 86850; 86900; 86901; 87086; 87088; 87340; J1610; J1815; J2210; J2590; J2795; J3010; J7120; U0003